=== PATIENT | male | born 1945 | race Caucasian/White ===

== ENCOUNTER 2017-03-26 19:23 | Emergency (ER) | payer MEDICARE ==
--- NOTE | 2017-03-27 19:52 | ER ---
ADMIT: 03/26/2017 RM/LOC: ER [facility] MR#: [id number] [address] [id number] ROZINA TREVINO [address] [facility] [place] [address] Emergency Room Report SEX: M AGE: 71 : 1945 DATE: 03/26/2017 HISTORY OF PRESENT ILLNESS: The patient is a 71-year-old male with past medical history of diverticulosis, diverticulitis, hypertension came to the ER with left lower quadrant pain for 7 hours, pain started gradually, increased in severity and is cramping, at the moment pain is gone completely, the patient states it was very similar in quality and quantity and location to the previous diverticulosis/diverticulitis pain. The patient states he was tracking his temperature and he was afebrile at this time. At the moment, the patient has no pain or discomfort. In the ER, also the patient states he took one ciprofloxacin p.o. as it was given for prophylaxis before. PHYSICAL EXAMINATION: VITAL SIGNS: In the ER, the patient was in no pain or distress. Vitals are stable, the patient is afebrile. HEAD AND NECK: Normal. CHEST: Clear. Normal. ABDOMEN: Soft, nontender, normal bowel sounds. There is no CVA tenderness. There is no rebound or guarding. The rest of the physical exam is noncontributory. The patient's urine was negative for any infection or bleed or other abnormalities. White BC was 10.2 with hemoglobin of 14.4, with very mild elevated white BC without any fever, the patient can be safely discharged to home with strict return precautions, with a prescription for ciprofloxacin and Flagyl for one week, pain control, and follow up with the primary doctor. The patient was advised to go to the ER, whenever he noticed the return of the pain or any increase in severity or characteristic of the pain or if there are any concerns. The patient understood the plan and agreed with it and was discharged to home. Steve Edwards MD/ jennifer JOB #: [id number] CC: Steve Edwards MD, Attending Physician Sam Abreu MD, Family Physician
== END 2017-03-26 20:45 | disposition home or self-care (01) ==
LOC: ER 19:23
DX: K57.90 Diverticulosis of intestine, part unspecified, without perforation or abscess without bleeding (principal); R10.32 Left lower quadrant pain; I10 Essential (primary) hypertension